=== PATIENT | male | born 1965 | race Caucasian/White ===

== ENCOUNTER 2016-11-11 02:47 | Emergency (ER) | payer BC ==
[~2016-11-11] VITALS: Ht 172.7 cm; Wt 64.7 kg
[~2016-11-11 02:47] MED LIST: ANTIVERT25 MG PO; ASPIR-LOW81 MG PO; IBUPROFEN200 M1 PO; NICOTINE PATCH1 EACH TD; PROTONIX40 MG PO
[2016-11-11 03:46] LABS: HEMATOCRIT 41.1 % (38.0-50.0); MCH 32.2 PG (29.0-34.0); MCHC 33.1 G/DL (30.0-36.0); MCV 97.2 FL (86-99); MEAN PLAT.VOLUME 9.3 uM^3 (9.0-12.4); PLATELET COUNT 312 K/uL (156-360); RBC DIS.WIDTH-CV 14.4 % (11.8-14.6); RBC DIS.WIDTH-SD 51.9 % (39-53); RED BLOOD COUNT 4.23 M/uL (4.00-5.50); WHITE BLOOD COUNT 6.8 K/uL (4.1-10.2)
[2016-11-11 03:58] LABS: CHLORIDE 104 mEq/L (99-109); POTASSIUM 4.2 mEq/L (3.7-5.4); SODIUM 139 mEq/L (136-147)
[2016-11-11 04:00] LABS: GLUCOSE 103 mg/dL (70-99)
[2016-11-11 04:01] LABS: ANION GAP 7 MEQ/L (2-14)
[2016-11-11 04:04] LABS: GFR ESTIMATE (CALCULATED) > 59 mL/min/
[2016-11-11 04:05] LABS: UREA NITROGEN (BUN) 17 mg/dL (9-23)
[2016-11-11 04:09] LABS: TROP-I INTERPRETATION NEGATIVE; TROPONIN-I < 0.01 ng/mL (0.0-0.30)
[2016-11-11] MEDS ORDERED: TRAMADOL HCL50 MG PO (04:21)
[2016-11-11 04:44] VITALS: BP 148/90
== END 2016-11-11 04:44 | disposition home or self-care (01) ==
LOC: EME 02:47
PROVIDERS: Emergency Medicine
DX: M25.511 Pain in right shoulder (principal); Z72.0 Tobacco use
CPT/HCPCS: 71020; 73030; 80048; 84484; 85027; 99281; 99284